=== PATIENT | male | born 1995 | race Asian ===

== ENCOUNTER 2016-11-25 06:14 | Emergency (ER) | payer BC ==
[~2016-11-25] VITALS: Ht 188 cm; Wt 65.3 kg
[2016-11-25 06:18] VITALS: Ht 188 cm; Wt 65.3 kg
[2016-11-25] MEDS ORDERED: SODIUM CHLORIDE 0.9% 1000ML 2,000 ML IV STA (06:38)
[2016-11-25] MEDS ORDERED: PROMETHAZINE HCL INJ 6.25 MG in SODIUM CHLORIDE 0.9% 50ML 50 ML IV STA (06:38)
[2016-11-25] MEDS ORDERED: ONDANSETRON INJ 2 MG/ML 2 ML VIAL IV STA (06:38)
[2016-11-25] MEDS ORDERED: KETOROLAC TROMETHAMINE 30 MG/ML VIAL IV STA (06:38)
[2016-11-25 06:42] VITALS: O2SAT 100
--- NOTE | 2016-11-25 06:47 | EMERGENCY ROOM VISIT NOTE ---
History Report prepared by Meenu: Lachelle Crystal Under the Supervision of: Dr. Louis Hernandez M.D. First contact with patient: 06:34 Chief Complaint: HYPERVENTILATION Stated Complaint: NUMBNESS IN WHOLE BODY Nursing Triage Summary: Patient presents to ED via private vehicle. Patient states, "My body feels numb. I haven't slept. I've been vomiting and feeling dizzy." Patient hyperventilating upon arrival. A/O x4. History of Present Illness The patient is a 21 year old male who presents to the Emergency Room with complaints of persistent vomiting that began 12 hours ago. The patient states that he has been vomiting persistently since yesterday, noting that he vomited seven times. He additionally notes that he had been passing gas yesterday, but denies any diarrhea. The patient states that he then began feeling dizzy due to his symptoms. He states that he started hyperventilating and then noticed whole body numbness. The patient's mother notes that she was recently ill with similar symptoms. She states that she had been vomiting three days ago, but once she started taking antibiotics she started feeling better. The patient notes that he only takes medications for his acne and denies any active medical problems. Source of History: patient, parent (mother) Onset: 12 hours ago Position: other (global) Quality: other (vomiting) Timing: other (persistent) Associated Symptoms: + numbness (whole body), No diarrhea Note: Associated Symptoms: passing gas, dizzy, hyperventilation Review of Systems See HPI for pertinent positives & negatives. A total of 10 systems reviewed and were otherwise negative. Past Medical & Surgical Medical Problems: (1) No active medical problems Family History Diabetes mellitus FH: heart disease Hypertension Social History Smoking Status: Never Smoker Smokeless Tobacco Use: No Alcohol Use: none Marital Status: single Housing Status: lives with family Occupation Status: student Current/Historical Medications Scheduled Ondasetron Odt (Zofran Odt), 4 MG SL Q6H Allergies Coded Allergies: Iodinated Contrast Media (Verified Allergy, Severe, `, 11/25/16) Iodine (Verified Allergy, Severe, 11/25/16) Physical Exam Vital Signs Date Time Temp Pulse Resp B/P Pulse Ox O2 Delivery O2 Flow Rate FiO2 11/25/16 09:45 36.9 92 16 99/40 97 11/25/16 09:22 92 11/25/16 08:14 91 20 97/40 96 Room Air 11/25/16 06:42 100 Room Air 11/25/16 06:33 121 11/25/16 06:18 36.9 134 38 129/98 98 Room Air 11/25/16 06:18 98 Room Air Physical Exam GENERAL: Patient is in no acute distress. HEENT: No acute trauma, normocephalic atraumatic, mucous membranes dry, no nasal congestion, no scleral icterus. NECK: No stridor, no adenopathy, no meningismus, trachea is midline. LUNGS: Clear to auscultation bilaterally, no wheeze, no rhonchi, breath sounds equal. HEART: Tachycardic, regular rhythm, no murmurs. ABDOMEN: Soft, nontender, bowel sounds positive, no hernias, no peritonitis. EXTREMITIES: No cyanosis or edema, full range of motion of all the joints without pain or difficulty, no signs for acute trauma. NEUROLOGIC: Oriented x 3, no acute motor or sensory deficits, no focal weakness. SKIN: No rash, no jaundice, no diaphoresis. Medical Decision & Procedures ER Provider Diagnostic Interpretation: X-ray results as stated below per interpretation by me and the radiologist: CHEST AND ABDOMEN 2 VIEWS HISTORY: Vomiting and generalized abdominal pain. COMPARISON: Abdomen and pelvis CT 09/24/2007. FINDINGS: The lungs are clear. The heart is normal in size. There is blunting the bilateral costophrenic sulci. This may represent trace pleural effusions. No pneumoperitoneum. No pneumatosis. The bowel gas pattern is unremarkable. No evidence for bowel obstruction. No renal or ureteral calculi. IMPRESSION: 1. Unremarkable bowel gas pattern. No evidence for bowel obstruction. 2. Suspect trace bilateral pleural effusions. Electronically signed by: Tomas Quesada M.D. 11/25/2016 8:10 AM Dictated Date/Time: 11/25/2016 8:07 AM Laboratory Results 11/25/16 06:52 Red Blood Count 5.56, Mean Corpuscular Volume 86.2, Mean Corpuscular Hemoglobin 31.1, Mean Corpuscular Hemoglobin Concent 36.1, Mean Platelet Volume 10.7, Neutrophils (%) (Auto) 91.0, Lymphocytes (%) (Auto) 5.0, Monocytes (%) (Auto) 3.1, Eosinophils (%) (Auto) 0.8, Basophils (%) (Auto) 0.0, Neutrophils # (Auto) 6.74, Lymphocytes # (Auto) 0.37, Monocytes # (Auto) 0.23, Eosinophils # (Auto) 0.06, Basophils # (Auto) 0.00 11/25/16 06:52 Test 11/25/16 06:52 11/25/16 08:50 White Blood Count 7.41 K/uL (4.8-10.8) Red Blood Count 5.56 M/uL (4.7-6.1) Hemoglobin 17.3 g/dL (14.0-18.0) Hematocrit 47.9 % (42-52) Mean Corpuscular Volume 86.2 fL (80-100) Mean Corpuscular Hemoglobin 31.1 pg (25-34) Mean Corpuscular Hemoglobin Concent 36.1 g/dl (32-36) Platelet Count 149 K/uL (130-400) Mean Platelet Volume 10.7 fL (7.4-10.4) Neutrophils (%) (Auto) 91.0 % Lymphocytes (%) (Auto) 5.0 % Monocytes (%) (Auto) 3.1 % Eosinophils (%) (Auto) 0.8 % Basophils (%) (Auto) 0.0 % Neutrophils # (Auto) 6.74 K/uL (1.4-6.5) Lymphocytes # (Auto) 0.37 K/uL (1.2-3.4) Monocytes # (Auto) 0.23 K/uL (0.11-0.59) Eosinophils # (Auto) 0.06 K/uL (0-0.5) Basophils # (Auto) 0.00 K/uL (0-0.2) RDW Standard Deviation 38.3 fL (36.4-46.3) RDW Coefficient of Variation 12.1 % (11.5-14.5) Immature Granulocyte % (Auto) 0.1 % Immature Granulocyte # (Auto) 0.01 K/uL (0.00-0.02) Anion Gap 9.0 mmol/L (3-11) Est Creatinine Clear Calc Drug Dose 90.7 ml/min Estimated GFR () 100.3 Estimated GFR (Non- 86.5 BUN/Creatinine Ratio 12.4 (10-20) Calcium Level 9.5 mg/dl (8.5-10.1) Magnesium Level 1.7 mg/dl (1.8-2.4) Total Bilirubin 2.2 mg/dl (0.2-1) Aspartate Amino Transf (AST/SGOT) 13 U/L (15-37) Alanine Aminotransferase (ALT/SGPT) 16 U/L (12-78) Alkaline Phosphatase 91 U/L (45-117) Total Creatine Kinase 82 U/L (39-308) Total Protein 8.2 gm/dl (6.4-8.2) Albumin 4.5 gm/dl (3.4-5.0) Globulin 3.7 gm/dl (2.5-4.0) Albumin/Globulin Ratio 1.2 (0.9-2) Thyroid Stimulating Hormone (TSH) 1.330 uIu/ml (0.300-4.500) Urine Color DK YELLOW Urine Appearance CLEAR (CLEAR) Urine pH 8.0 (4.5-7.5) Urine Specific [place] 1.024 (1.000-1.030) Urine Protein NEG (NEG) Urine Glucose (UA) NEG (NEG) Urine Ketones 2+ (NEG) Urine Occult Blood NEG (NEG) Urine Nitrite NEG (NEG) Urine Bilirubin NEG (NEG) Urine Urobilinogen NEG (NEG) Urine Leukocyte Esterase TRACE (NEG) Urine WBC (Auto) 0 /hpf (0-5) Urine RBC (Auto) 0-4 /hpf (0-4) Urine Hyaline Casts (Auto) 0 /lpf (0-5) Urine Epithelial Cells (Auto) 5-10 /lpf (0-5) Urine Bacteria (Auto) NEG (NEG) Laboratory results reviewed by me. Medications Administered Medications (Trade) Dose Ordered Sig/Ilana Route Start Time Stop Time Status Last Admin Dose Admin Sodium Chloride (Nss 1000ml) 2,000 ml @ 999 mls/hr Q2H1M STAT IV 11/25/16 06:38 11/25/16 08:38 DC 11/25/16 06:49 999 MLS/HR Ondansetron HCl 4 mg 4 mg NOW STAT IV 11/25/16 06:38 11/25/16 06:41 DC 11/25/16 06:49 4 MG Promethazine HCl/ Sodium Chloride (Phenergan Inj/ Nss 50ml) 50.25 ml @ 204 mls/hr NOW STAT IV 11/25/16 06:38 11/25/16 06:52 DC 11/25/16 07:04 204 MLS/HR Ketorolac Tromethamine (Toradol Inj) 30 mg NOW STAT IV 11/25/16 06:38 11/25/16 06:41 DC 11/25/16 06:49 30 MG Magnesium Sulfate 1 gm 1 gm NOW STAT IV 11/25/16 07:21 11/25/16 07:22 DC 11/25/16 07:36 1 GM Sodium Chloride (Nss 500ml) 500 ml @ 999 mls/hr Q31M STAT IV 11/25/16 09:07 11/25/16 09:37 DC 11/25/16 09:10 999 MLS/HR ECG Indication: vomiting, other (numbness) Rate (beats per minute): 118 Rhythm: sinus tachycardia Findings: no acute ischemic change, no ectopy ED Course 0636: The patient was evaluated in room A4B. A complete history and physical exam was performed. 0638: Ordered Toradol Inj 30 mg IV, Promethazine Hcl 6.25 mg/Sodium Chloride 50.25 ml @ 204 mls/hr IV, Zofran Inj 4 mg IV, Sodium Chloride 2000 ml @ 999 mls/ hr IV. 0721: Ordered Magnesium Sulfate 1 gm IV. 0852: I reevaluated the patient and he is doing well. I discussed the exam findings with him and I discussed the treatment plan. He verbalized complete understanding and agreement. He will be ready to go home shortly after receiving more fluids. 0907: Ordered Sodium Chloride 500 ml @ 999 mls/hr IV. 0930: I reevaluated the patient and he is ready for discharge. Medical Decision The patient is a 21 year old male who presents to the ED with complaints of vomiting. Differential diagnoses considered include dehydration, electrolyte imbalance, anemia, anxiety, hyperventilation, viral illness, food borne illness , renal failure. There is no leukocytosis or concerning anemia. Magnesium was slightly low, no kidney failure, there was no hepatitis or thyroid dysfunction. Urinalysis does not show infection. Obstruction series shows no pneumonia or bowel obstruction. On exam, the patient was not toxic, he was not febrile. The patient received 2.5 L of IV saline. He received IV Zofran, IV Phenergan and IV Toradol. Patient was given a dose of IV magnesium. The patient is feeling improved, no further vomiting while here in the emergency room. His heart rate has improved. I do suspect his illness is viral as his mother had the same thing recently. The patient will be discharged with Zofran, rest, a bland diet and he was instructed to return here if worsening. Impression Primary Impression: Vomiting Additional Impressions: Dehydration Hyperventilation Hypomagnesemia Scribe Attestation The scribe's documentation has been prepared under my direction and personally reviewed by me in its entirety. I confirm that the note above accurately reflects all work, treatment, procedures, and medical decision making performed by me. Departure Information Dispostion Home / Self-Care Prescriptions Ondasetron Odt (ZOFRAN ODT) 4 Mg Tab 4 MG SL Q6H for Nausea, #10 TAB Prov: Louis Hernandez M.D. 11/25/16 Referrals No Doctor, Assigned (PCP) Forms HOME CARE DOCUMENTATION FORM, IMPORTANT VISIT INFORMATION, WORK / SCHOOL INSTRUCTIONS Patient Instructions My [facility] Additional Instructions rest bland diet---crackers, soup, gatorade, toast zofran 1-2 tab every 6 hours for nausea tylenol for fever and aches return if worsening Problem Qualifiers
[2016-11-25 07:01] LABS: COMPLETE YES; EOS % 0.8 %; HEMATOCRIT 47.9 % (42-52); IG% 0.1 %; LYMPH ABS # 0.37 K/uL (1.2-3.4); MEAN CELL VOLUME 86.2 fL (80-100); MEAN CORPUSCULAR HEMOGLOBIN 31.1 pg (25-34); MEAN CORPUSCULAR HGB CONC 36.1 g/dl (32-36); MEAN PLATELET VOLUME 10.7 fL (7.4-10.4); MONO % 3.1 %; PLATELET COUNT 149 K/uL (130-400); RED BLOOD COUNT 5.56 M/uL (4.7-6.1); WHITE BLOOD COUNT 7.41 K/uL (4.8-10.8)
[2016-11-25 07:18] LABS: BUN/CREATININE RATIO 12.4 (10-20); CALCIUM 9.5 mg/dl (8.5-10.1); CREATININE 1.2 mg/dl (0.60-1.40); MAGNESIUM 1.7 mg/dl (1.8-2.4); POTASSIUM 3.5 mmol/L (3.5-5.1)
[2016-11-25] MEDS ORDERED: MAGNESIUM SULFATE 1GM / D5W 1 GM BAG IV STA (07:21)
[2016-11-25 07:29] LABS: ALB/GLOB RATIO 1.2 (0.9-2); THYROID STIMULATING HORMONE 1.33 uIu/ml (0.300-4.500)
--- NOTE | 2016-11-25 08:11 | DIAGNOSTIC IMAGING REPORT ---
CHEST AND ABDOMEN 2 VIEWS HISTORY: Vomiting and generalized abdominal pain. COMPARISON: Abdomen and pelvis CT 09/24/2007. FINDINGS: The lungs are clear. The heart is normal in size. There is blunting the bilateral costophrenic sulci. This may represent trace pleural effusions. No pneumoperitoneum. No pneumatosis. The bowel gas pattern is unremarkable. No evidence for bowel obstruction. No renal or ureteral calculi. IMPRESSION: 1. Unremarkable bowel gas pattern. No evidence for bowel obstruction. 2. Suspect trace bilateral pleural effusions. Electronically signed by: Tomas Quesada M.D. 11/25/2016 8:10 AM Dictated Date/Time: 11/25/2016 8:07 AM
[2016-11-25] MEDS ORDERED: SODIUM CHLORIDE 0.9% 500ML 500 ML IV STA (09:07)
[2016-11-25 09:10] LABS: URINE APPEARANCE CLEAR (CLEAR); URINE BILIRUBIN NEG (NEG); URINE COLOR DK YELLOW; URINE NITRITE NEG (NEG); URINE SPECIFIC GRAVITY 1.024 (1.000-1.030); UROBILINOGEN NEG (NEG); ZZUR CULT IF INDIC CLEAN CATCH NO
[2016-11-25] MEDS ORDERED: ONDA4TAB10 SL (09:11)
[2016-11-25 09:14] LABS: MANUAL MICROSCOPIC REQUIRED? NO; REVIEW REQ? NO
[2016-11-25 09:45] VITALS: BP 99/40; PULSE 92; TEMP 36.9; O2SAT 97
== END 2016-11-25 09:47 | disposition home or self-care (01) ==
LOC: C.EDB 06:16 → C.EDA 09:47
DX: R11.10 Vomiting, unspecified (principal); E86.0 Dehydration; R06.4 Hyperventilation; E83.42 Hypomagnesemia; Z83.3 Family history of diabetes mellitus; Z82.49 Family history of ischemic heart disease and other diseases of the circulatory system

== ENCOUNTER 2022-01-20 10:59 | Observation (INO) ==
[2022-01-20 11:56] LABS: Basophils # (auto) 0.01 K/uL (0-0.2); Basophils % (auto) 0.1 %; Eosinophils # (auto) 0.07 K/uL (0-0.5); Eosinophils % (auto) 0.8 %; Hemoglobin 15.8 g/dL (14.0-18.0); Immature Granulocytes # (auto) 0.02 K/uL (0.00-0.02); Immature Granulocytes % (auto) 0.2 %; Lymphocytes % (auto) 15.8 %; Mean Corpuscular Hemoglobin 31.3 pg (25-34); Mean Corpuscular Hgb Conc 34.3 g/dL (32-36); Mean Corpuscular Volume 91.3 fL (80-100); Mean Platelet Volume 10.8 fL (7.4-10.4); Monocytes # (auto) 0.51 K/uL (0.11-0.59); Monocytes % (auto) 6.2 %; Neutrophils # (auto) 6.34 K/uL (1.4-6.5); Neutrophils % (auto) 76.9 %; Platelet Count 202 K/uL (130-400); RDW Coefficient of Variation 12.6 % (11.5-14.5); RDW Standard Deviation 42.1 fL (36.4-46.3); Red Blood Count 5.04 M/uL (4.7-6.1); White Blood Count 8.25 K/uL (4.8-10.8)
[2022-01-20] MEDS ORDERED: methylPREDNISolone 125 MG/2 ML VIAL IV STA (12:02)
[2022-01-20] MEDS ORDERED: diphenhydrAMINE 50 MG/ML VIAL IV STA (12:02)
--- NOTE | 2022-01-20 12:33 | Emergency Department Note ---
History of Present Illness General Chief complaint: Abdominal Pain Stated complaint: ABD PAIN, DR CALLED TO COME BACK TO ER TODAY Time Seen by Provider: 01/20/22 11:15 Source: patient Mode of arrival: ambulatory Limitations: no limitations History of Present Illness Maximum Pain Intensity: 5 This patient is a 26-year-old male who presents to the emergency department accompanied by his father stating that he was called back into the ER. Patient was here overnight due to abdominal pain and vomiting. He was feeling much better early this morning and was discharged home. He states that he received a call to come back to the hospital for evaluation. He states he is feeling better at this time. He reports very minimal abdominal "discomfort" rated a 1/10. He states the pain has pretty much resolved and he is no longer vomiting. On review of records, patient's initial CT was read as negative, however over read this morning was concerning for acute appendicitis. Home Medications Medication Instructions Recorded Confirmed Type ibuprofen 200 mg tablet 400 mg PO Q6H PRN 01/19/22 01/20/22 History omeprazole 40 mg capsule,delayed 40 mg PO DAILY PRN 01/19/22 01/20/22 History release Allergies Allergy/AdvReac Type Severity Reaction Status Date / Time Iodinated Contrast Media Allergy Severe Unknown Verified 01/20/22 14:03 iodine Allergy Severe Unknown Verified 01/20/22 14:03 Past Med/Surg History Medical History Acne vulgaris Asperger's disorder Idiopathic scoliosis Poor sleep hygiene Surgical History History of esophagogastroduodenoscopy (EGD) [place] teeth removed Family History Grandfather (Paternal) Diabetes Grandmother (Maternal) Hypertension Social History Smoking Status: Never smoker Hx Alcohol Use: No Hx Substance Use: No Preferred Language: Portuguese Communication Ability: 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 Beliefs That Will Affect Care: None Current Living Situation: Family Other Information That Helps Us Care for You: No Feels Safe at Home: Yes Safety Concerns: Feels Safe At This Time Assistive Devices: None Review of Systems A total of 10 systems reviewed and were otherwise negative Physical Exam Vital Signs Vital Signs - 24 hr 01/20/22 11:05 01/20/22 12:00 01/20/22 12:50 Temperature 36.6 C Temperature Source Oral Pulse Rate 71 63 Pulse Rate [Apical] Pulse Rate [Finger] 51 L Pulse Rate from SpO2 Sensor 66 Pulse Rhythm Regular Pulse Rhythm [Apical] Pulse Strength Normal Pulse Strength [Apical] Respiratory Rate 18 17 18 Respiratory Effort / Characteristics Non-Labored Spontaneous Respiratory Depth Normal Respiratory Pattern Regular Blood Pressure 105/69 109/72 Blood Pressure [Left Arm] 114/81 Blood Pressure Mean 81 84 Blood Pressure Mean [Left Arm] 92 Blood Pressure Position Sitting Blood Pressure Position [Left Arm] Pulse Oximetry 97 100 100 Oxygen Delivery Method Room Air Room Air Room Air Sepsis Recent Fever Within 48 Hours No Sepsis New/Unexplained Change in Mental Status No Sepsis Action Taken by Nursing No Action Required 01/20/22 14:26 01/20/22 17:40 01/20/22 17:50 Temperature 36.2 C L Temperature Source Temporal Artery Scan Pulse Rate Pulse Rate [Apical] 85 69 Pulse Rate [Finger] 70 Pulse Rate from SpO2 Sensor Pulse Rhythm Pulse Rhythm [Apical] Regular Regular Pulse Strength Pulse Strength [Apical] Normal Normal Respiratory Rate 18 18 12 Respiratory Effort / Characteristics Non-Labored Spontaneous Non-Labored Spontaneous Respiratory Depth Normal Normal Respiratory Pattern Regular Regular Blood Pressure Blood Pressure [Left Arm] 104/62 101/56 L 104/57 L Blood Pressure Mean Blood Pressure Mean [Left Arm] 76 71 72 Blood Pressure Position Blood Pressure Position [Left Arm] Lying Lying Pulse Oximetry 100 100 98 Oxygen Delivery Method Room Air Room Air Room Air Sepsis Recent Fever Within 48 Hours Sepsis New/Unexplained Change in Mental Status Sepsis Action Taken by Nursing VITALS: Vitals are noted on the nurse's note and reviewed by myself. GENERAL: This is a 26-year-old male, in no acute distress, well-developed well- nourished. SKIN: The skin was without rashes. EARS: External auditory canals clear, tympanic membranes pearly lopez without erythema or effusion bilaterally. EYES: Pupils equal round and reactive to light and accommodation. MOUTH: Mucous membranes moist. Tonsils are not enlarged. Pharynx without erythema or exudate. NECK: Supple without nuchal rigidity. No lymphadenopathy. HEART: Regular rate and rhythm without murmurs gallops or rubs. LUNGS: Clear to auscultation bilaterally without wheezes, rales or rhonchi. ABDOMEN: Positive bowel sounds x 4. Soft, no significant tenderness to palpation. No guarding or rebound tenderness. Specifically, no tenderness in the right lower quadrant. Negative Rovsing sign. NEURO: Patient was alert and oriented to person place and time. Course Consultations Consultation #1: Dr. Franco - general surgery Administered Medications Lactated Ringer's (Lr) 1,000 mls @ 50 mls/hr IV .Q20H AIDEN Stop: 02/19/22 19:05 Last Admin: 01/20/22 19:20 Dose: 50 mls/hr Documented by: [id number] Discontinued Medications Bupivacaine HCl (Bupivacaine 0.5 % 5 Mg/1 Ml Mpf 30ml Vial) Confirm Administered Dose 30 ml .ROUTE .STK-MED ONE Stop: 01/20/22 16:44 Last Admin: 01/20/22 17:25 Dose: 30 ml Documented by: [id number] Diphenhydramine HCl (Diphenhydramine 50 Mg/Ml Vial) 50 mg IV NOW STA Stop: 01/20/22 12:03 Last Admin: 01/20/22 12:09 Dose: 50 mg Documented by: [id number] Epinephrine HCl (Epinephrine Inj 1 Mg/Ml Amp) Confirm Administered Dose 1 mg .ROUTE .STK-MED ONE Stop: 01/20/22 16:43 Last Admin: 01/20/22 17:23 Dose: 0.15 mg Documented by: [id number] Cefoxitin Sodium 2,000 mg/ (Dextrose) 60 mls @ 100 mls/hr IV ONCE ONE Stop: 01/20/22 17:44 Last Admin: 01/20/22 16:50 Dose: 100 mls/hr Documented by: [id number] Ioversol (Optiray 320 100ml) 94 ml IV ONCE ONE Stop: 01/20/22 14:22 Last Admin: 01/20/22 14:22 Dose: 94 ml Documented by: [id number] Methylprednisolone (Methylprednisolone 125 Mg/2 Ml Vial) 125 mg IV NOW STA Stop: 01/20/22 12:03 Last Admin: 01/20/22 12:09 Dose: 125 mg Documented by: [id number] Medical Decision Making Differential Diagnosis Appendicitis, testicular torsion, infections, diverticulitis, UTI, obstruction, mesenteric ischemia, aortic pathology, inflammatory bowel disease, renal colic, PUD, pancreatitis, biliary pathology, hernia, volvulus, constipation, as well as other pathologies. Home Medications Current Medication List: was personally reviewed by me Laboratory Data Attestation: I reviewed the patient's lab results. Result diagrams: 01/20/22 11:20 01/20/22 11:20 Lab Results 01/20/22 01/20/22 01/20/22 Range/Units 11:20 11:20 11:20 WBC 8.25 (4.8-10.8) K/uL RBC 5.04 (4.7-6.1) M/uL Hgb 15.8 (14.0-18.0) g/dL Hct 46.0 (42-52) % MCV 91.3 (80-100) fL MCH 31.3 (25-34) pg MCHC 34.3 (32-36) g/dL RDW Std Deviation 42.1 (36.4-46.3) fL RDW Coeff of Dmitry 12.6 (11.5-14.5) % Plt Count 202 (130-400) K/uL MPV 10.8 H (7.4-10.4) fL Immature Gran % (Auto) 0.2 % Neut % (Auto) 76.9 % Lymph % (Auto) 15.8 % [place] % (Auto) 6.2 % Eos % (Auto) 0.8 % Baso % (Auto) 0.1 % Neut # (Auto) 6.34 (1.4-6.5) K/uL Lymph # (Auto) 1.30 (1.2-3.4) K/uL [place] # (Auto) 0.51 (0.11-0.59) K/uL Eos # (Auto) 0.07 (0-0.5) K/uL Baso # (Auto) 0.01 (0-0.2) K/uL Immature Gran # (Auto) 0.02 (0.00-0.02) K/uL Sodium 140 (136-145) mmol/L Potassium 3.9 (3.5-5.1) mmol/L Chloride 107 (98-107) mmol/L Carbon Dioxide 27 (21-32) mmol/L Anion Gap 6 (3-11) BUN 9 (6-23) mg/dl Creatinine 0.84 (0.6-1.4) mg/dl Est Cr Clr Drug Dosing 121.3 ml/min Est GFR ( Amer) 141.0 ml/min Est GFR (Non-Af Amer) 121.7 ml/min BUN/Creatinine Ratio 10.7 (10-20) Glucose 89 (70-99(Fasting)) mg/dl Calcium 9.6 (8.5-10.1) mg/dl C-Reactive Protein < 0.50 (0-0.5) mg/dl Urine Color Urine Appearance (Clear) Urine pH (4.5-7.5) Ur Specific [place] (1.000-1.030) Urine Protein (Negative) Urine Glucose (UA) (Negative) Urine Ketones (Negative) Urine Blood (Negative) Urine Nitrite (Negative) Urine Bilirubin (Negative) Urine Urobilinogen (Negative) Ur Leukocyte Esterase (Negative) SARS-CoV-2, RNA, NAAT (NEGATIVE) 01/20/22 01/20/22 Range/Units 11:30 12:45 WBC (4.8-10.8) K/uL RBC (4.7-6.1) M/uL Hgb (14.0-18.0) g/dL Hct (42-52) % MCV (80-100) fL MCH (25-34) pg MCHC (32-36) g/dL RDW Std Deviation (36.4-46.3) fL RDW Coeff of Dmitry (11.5-14.5) % Plt Count (130-400) K/uL MPV (7.4-10.4) fL Immature Gran % (Auto) % Neut % (Auto) % Lymph % (Auto) % [place] % (Auto) % Eos % (Auto) % Baso % (Auto) % Neut # (Auto) (1.4-6.5) K/uL Lymph # (Auto) (1.2-3.4) K/uL [place] # (Auto) (0.11-0.59) K/uL Eos # (Auto) (0-0.5) K/uL Baso # (Auto) (0-0.2) K/uL Immature Gran # (Auto) (0.00-0.02) K/uL Sodium (136-145) mmol/L Potassium (3.5-5.1) mmol/L Chloride (98-107) mmol/L Carbon Dioxide (21-32) mmol/L Anion Gap (3-11) BUN (6-23) mg/dl Creatinine (0.6-1.4) mg/dl Est Cr Clr Drug Dosing ml/min Est GFR ( Amer) ml/min Est GFR (Non-Af Amer) ml/min BUN/Creatinine Ratio (10-20) Glucose (70-99(Fasting)) mg/dl Calcium (8.5-10.1) mg/dl C-Reactive Protein (0-0.5) mg/dl Urine Color Yellow Urine Appearance Clear (Clear) Urine pH 7.0 (4.5-7.5) Ur Specific [place] 1.006 (1.000-1.030) Urine Protein Negative (Negative) Urine Glucose (UA) Negative (Negative) Urine Ketones Negative (Negative) Urine Blood Negative (Negative) Urine Nitrite Negative (Negative) Urine Bilirubin Negative (Negative) Urine Urobilinogen Negative (Negative) Ur Leukocyte Esterase Negative (Negative) SARS-CoV-2, RNA, NAAT NEGATIVE (NEGATIVE) Imaging Data Attestation: I personally reviewed and interpreted this imaging study as follows: Radiologist's Impression: Abdomen/Pelvis CT 01/20/22 11:[address] WITH IV AND ORAL CONTRAST CT DOSE: 310.38 mGy.cm HISTORY: Generalized abdominal pain. Nausea. Vomiting. Abnormal CT. Follow-up. TECHNIQUE: Multiaxial CT images of the abdomen and pelvis were performed following the use of intravenous and oral contrast. A dose lowering technique was utilized adhering to the principles of ALARA. COMPARISON STUDY: Abdomen and pelvis CT 01/20/2022. FINDINGS: Trace bilateral pleural effusions are noted. No pneumoperitoneum. No pneumatosis. No fractures within the visualized osseous structures. The liver, spleen, adrenal glands, pancreas, kidneys, and gallbladder are unremarkable. No retroperitoneal lymphadenopathy. Normal caliber abdominal aorta. Trace pelvic free fluid. The bladder is unremarkable. No evidence for bowel obstruction. The appendix is again identified within the right lower quadrant. The proximal appendix is normal in caliber and fills with contrast. The distal appendix is thickened measuring up to 8 mm and filled with fluid. This does not fill with co ntrast. Therefore, this is consistent with acute appendicitis. The distal appendix is best seen on images 299 through 315. IMPRESSION: Abnormal appearance to the distal appendix as described above consistent with acute appendicitis. No perforation or abscess identified. Surgical consultation recommended. ACT 112: Negative or not required by law. Electronically signed by: Tomas Quesada M.D. 01/20/2022 2:32 PM MDM Narrative The patient is a 26-year-old male who presents today for evaluation of an abnormal CT scan. Patient was seen here overnight due to vomiting and abdominal pain. He had a noncontrast CT scan which was initially read overnight as negative, however over read this morning was concerning for appendicitis. Interestingly, on arrival here the patient is not complaining of any further pain or vomiting. However given these findings I did speak with the general surgeon on-call, Dr. Franco. We discussed plan of care and elected to repeat labs and a CT with IV and oral contrast. This was performed and again was concerning for appendicitis. Dr. Franco evaluated the patient and elected to take him to the OR for operative management. Impression & Plan Appendicitis Discharge Plan Visit Data Chief Complaint: Abdominal Pain Stated Complaint: ABD PAIN, CALLED TO COME BACK TO ER TODAY ED Provider: Pal Fleming ED Midlevel Provider: Olimpia Lizama Discharge Problem: Appendicitis Patient Disposition: Admitted As Inpatient Discharge Instructions Interventions: ED Discharge Assessment Last Done: 01/20/22 16:26 Discharge Problem: Appendicitis Qualifiers: Appendicitis type: acute appendicitis Acute appendicitis type: unspecified acute appendicitis type Qualified Code(s): K35.80 - Unspecified acute appendicitis
[2022-01-20 12:40] LABS: BUN Creatinine Ratio 10.7 (10-20); Calcium 9.6 mg/dl (8.5-10.1); Creatinine Clr Calc Pharmacy 121.3 ml/min; Est GFR (Non-African American) 121.7 ml/min; Potassium 3.9 mmol/L (3.5-5.1)
[2022-01-20] MEDS ORDERED: OPTIRAY 320 100ml IV ONE (14:21)
--- NOTE | 2022-01-20 14:34 | CT Scan Report ---
ABDOMEN AND PELVIS CT WITH IV AND ORAL CONTRAST CT DOSE: 310.38 mGy.cm HISTORY: Generalized abdominal pain. Nausea. Vomiting. Abnormal CT. Follow-up. TECHNIQUE: Multiaxial CT images of the abdomen and pelvis were performed following the use of intrave nous and oral contrast. A dose lowering technique was utilized adhering to the principles of ALARA. COMPARISON STUDY: Abdomen and pelvis CT 01/20/2022. FINDINGS: Trace bilateral pleural effusions are noted. No pneumoperitoneum. No pneumatosis. No fractu res within the visualized osseous structures. The liver, spleen, adrenal glands, pancreas, kidneys, a nd gallbladder are unremarkable. No retroperitoneal lymphadenopathy. Normal caliber abdominal aorta. Trace pelvic free fluid. The bladder is unremarkable. No evidence for bowel obstruction. The appendix is again identified within the right lower quadrant. The proximal appendix is normal in caliber and fills with contrast. The distal appendix is thickened measuring up to 8 mm and filled with fluid. Thi s does not fill with contrast. Therefore, this is consistent with acute appendicitis. The distal appe ndix is best seen on images 299 through 315. IMPRESSION: Abnormal appearance to the distal appendix as described above consistent with acute appendicitis. No perforation or abscess identified. Surgical consultation recommended. ACT 112: Negative or not required by law. Electronically signed by: Tomas Quesada M.D. 01/20/2022 2:32 PM
[2022-01-20 14:50] LABS: Appearance Urine Clear (Clear); Bilirubin Urine Negative (Negative); Blood Urine Negative (Negative); Color Urine Yellow; Glucose Urine UA Negative (Negative); Ketones Urine Negative (Negative); Leukocyte Esterase Urine Negative (Negative); Nitrite Urine Negative (Negative); Protein Urine Negative (Negative); Specific Gravity Urine 1.006 (1.000-1.030); Urobilinogen Urine Negative (Negative)
--- NOTE | 2022-01-20 15:53 | History & Physical Report ---
Date of Service January 20, 2022 Assessment & Plan (1) Appendicitis: Plan: 26 y/o with acute appendicitis. discussed risks/benefits of lap appendectomy. all questions answered, agreeable to proceed. will take to the OR at the earliest convenience. History of Present Illness Primary Care Provider: Melinda Robles, DO 26 y/o gentleman with right sided and epigastric abdominal pain associated with nausea and vomiting. last ate yesterday, vomited afterwards. denies fevers/chills. has a history of epigastric pain dating back to a year ago. worst pain yesterday. CT scan with abnormal appendix, concern for acute appendicitis, WBC 12 yesterday. Allergies Allergy/AdvReac Type Severity Reaction Status Date / Time Iodinated Contrast Media Allergy Severe Unknown Verified 01/20/22 14:03 iodine Allergy Severe Unknown Verified 01/20/22 14:03 Home Medications Medication Instructions Recorded Confirmed Type ibuprofen 200 mg tablet 400 mg PO Q6H PRN 01/19/22 01/20/22 History omeprazole 40 mg capsule,delayed 40 mg PO DAILY PRN 01/19/22 01/20/22 History release Past Med/Surg History Medical History Acne vulgaris Asperger's disorder Idiopathic scoliosis Poor sleep hygiene Surgical History History of esophagogastroduodenoscopy (EGD) [place] teeth removed Family History Grandfather (Paternal) Diabetes Grandmother (Maternal) Hypertension Social History Smoking Status: Never smoker Hx Alcohol Use: No Hx Substance Use: No Preferred Language: Sinhala Feels Safe at Home: Yes Review of Systems Review of Systems: All systems reviewed & are unremarkable except as noted in HPI & below Physical Exam Constitutional: WD/WN, vitals as above Neck: trachea midline, no thyromegaly Respiratory: normal respiratory effort; no respiratory distress and no labored breathing Cardiovascular: Rate/Rhythm: regular rate and regular rhythm Gastrointestinal (Abdomen): Inspection/Auscultation: abdomen normal to inspection; abdomen not distended Percussion/Palpation: abdomen soft; abdomen nontender, no guarding and abdomen not rigid Musculoskeletal: Extremities: no cyanosis and no clubbing Skin: no rashes, warm and dry Psychiatric: A+Ox3, euthymic affect Results & Data Results & Data ([facility]) Vital Signs (Past 12 Hours) Vital Signs Temp Pulse Pulse Resp BP BP Pulse Ox 01/20/22 14:26 70 18 104/62 100 01/20/22 12:50 51 L 18 114/81 100 01/20/22 12:00 63 17 109/72 100 01/20/22 11:05 36.6 C 71 18 105/69 97 Laboratory Results 01/20/22 01/20/22 01/20/22 Range/Units 12:45 11:30 11:20 WBC (4.8-10.8) K/uL RBC (4.7-6.1) M/uL Hgb (14.0-18.0) g/dL Hct (42-52) % MCV (80-100) fL MCH (25-34) pg MCHC (32-36) g/dL RDW Std Deviation (36.4-46.3) fL RDW Coeff of Dmitry (11.5-14.5) % Plt Count (130-400) K/uL MPV (7.4-10.4) fL Immature Gran % (Auto) % Neut % (Auto) % Lymph % (Auto) % [place] % (Auto) % Eos % (Auto) % Baso % (Auto) % Neut # (Auto) (1.4-6.5) K/uL Lymph # (Auto) (1.2-3.4) K/uL [place] # (Auto) (0.11-0.59) K/uL Eos # (Auto) (0-0.5) K/uL Baso # (Auto) (0-0.2) K/uL Immature Gran # (Auto) (0.00-0.02) K/uL Sodium (136-145) mmol/L Potassium (3.5-5.1) mmol/L Chloride (98-107) mmol/L Carbon Dioxide (21-32) mmol/L Anion Gap (3-11) BUN (6-23) mg/dl Creatinine (0.6-1.4) mg/dl Est Cr Clr Drug Dosing ml/min Est GFR ( Amer) ml/min Est GFR (Non-Af Amer) ml/min BUN/Creatinine Ratio (10-20) Glucose (70-99(Fasting)) mg/dl Calcium (8.5-10.1) mg/dl C-Reactive Protein < 0.50 (0-0.5) mg/dl Urine Color Yellow Urine Appearance Clear (Clear) Urine pH 7.0 (4.5-7.5) Ur Specific [place] 1.006 (1.000-1.030) Urine Protein Negative (Negative) Urine Glucose (UA) Negative (Negative) Urine Ketones Negative (Negative) Urine Blood Negative (Negative) Urine Nitrite Negative (Negative) Urine Bilirubin Negative (Negative) Urine Urobilinogen Negative (Negative) Ur Leukocyte Esterase Negative (Negative) SARS-CoV-2, RNA, NAAT NEGATIVE (NEGATIVE) 01/20/22 01/20/22 Range/Units 11:20 11:20 WBC 8.25 (4.8-10.8) K/uL RBC 5.04 (4.7-6.1) M/uL Hgb 15.8 (14.0-18.0) g/dL Hct 46.0 (42-52) % MCV 91.3 (80-100) fL MCH 31.3 (25-34) pg MCHC 34.3 (32-36) g/dL RDW Std Deviation 42.1 (36.4-46.3) fL RDW Coeff of Dmitry 12.6 (11.5-14.5) % Plt Count 202 (130-400) K/uL MPV 10.8 H (7.4-10.4) fL Immature Gran % (Auto) 0.2 % Neut % (Auto) 76.9 % Lymph % (Auto) 15.8 % [place] % (Auto) 6.2 % Eos % (Auto) 0.8 % Baso % (Auto) 0.1 % Neut # (Auto) 6.34 (1.4-6.5) K/uL Lymph # (Auto) 1.30 (1.2-3.4) K/uL [place] # (Auto) 0.51 (0.11-0.59) K/uL Eos # (Auto) 0.07 (0-0.5) K/uL Baso # (Auto) 0.01 (0-0.2) K/uL Immature Gran # (Auto) 0.02 (0.00-0.02) K/uL Sodium 140 (136-145) mmol/L Potassium 3.9 (3.5-5.1) mmol/L Chloride 107 (98-107) mmol/L Carbon Dioxide 27 (21-32) mmol/L Anion Gap 6 (3-11) BUN 9 (6-23) mg/dl Creatinine 0.84 (0.6-1.4) mg/dl Est Cr Clr Drug Dosing 121.3 ml/min Est GFR ( Amer) 141.0 ml/min Est GFR (Non-Af Amer) 121.7 ml/min BUN/Creatinine Ratio 10.7 (10-20) Glucose 89 (70-99(Fasting)) mg/dl Calcium 9.6 (8.5-10.1) mg/dl C-Reactive Protein (0-0.5) mg/dl Urine Color Urine Appearance (Clear) Urine pH (4.5-7.5) Ur Specific [place] (1.000-1.030) Urine Protein (Negative) Urine Glucose (UA) (Negative) Urine Ketones (Negative) Urine Blood (Negative) Urine Nitrite (Negative) Urine Bilirubin (Negative) Urine Urobilinogen (Negative) Ur Leukocyte Esterase (Negative) SARS-CoV-2, RNA, NAAT (NEGATIVE) Diagnostic Findings ABDOMEN AND PELVIS CT WITH IV AND ORAL CONTRAST CT DOSE: 310.38 mGy.cm HISTORY: Generalized abdominal pain. Nausea. Vomiting. Abnormal CT. Follow-up. TECHNIQUE: Multiaxial CT images of the abdomen and pelvis were performed following the use of intravenous and oral contrast. A dose lowering technique was utilized adhering to the principles of ALARA. COMPARISON STUDY: Abdomen and pelvis CT 01/20/2022. FINDINGS: Trace bilateral pleural effusions are noted. No pneumoperitoneum. No pneumatosis. No fractures within the visualized osseous structures. The liver, spleen, adrenal glands, pancreas, kidneys, and gallbladder are unremarkable. No retroperitoneal lymphadenopathy. Normal caliber abdominal aorta. Trace pelvic free fluid. The bladder is unremarkable. No evidence for bowel obstruction. The appendix is again identified within the right lower quadrant. The proximal appendix is normal in caliber and fills with contrast. The distal appendix is thickened measuring up to 8 mm and filled with fluid. This does not fill with contrast. Therefore, this is consistent with acute appendicitis. The distal appendix is best seen on images 299 through 315. IMPRESSION: Abnormal appearance to the distal appendix as described above consistent with acute appendicitis. No perforation or abscess identified. Surgical consultation recommended.
[2022-01-20] MEDS ORDERED: fentaNYL citrate 100 MCG/2 ML VIAL ONE ×2 (16:12→17:08)
[2022-01-20] MEDS ORDERED: MIDAZOLAM HCL 1 MG/ML 2ML VIAL ONE (16:12)
[2022-01-20] MEDS ORDERED: PROPOFOL IV EMULSION 10 MG/ML 20 ML VIAL IV ONE (16:12)
[2022-01-20] MEDS ORDERED: ROCURONIUM BROMIDE 10 MG/ML 5 ML VIAL IV ONE (16:12)
[2022-01-20] MEDS ORDERED: ePHEDrine sulfate 50 MG/ML AMP IV PRN (16:36)
[2022-01-20] MEDS ORDERED: HYDROmorphone INJ 2 MG/ML SYR/VIAL IV PRN (16:36)
[2022-01-20] MEDS ORDERED: ATROPINE SULFATE 0.1 MG/ML 10ML SYR IV PRN (16:36)
[2022-01-20] MEDS ORDERED: fentaNYL citrate 100 MCG/2 ML VIAL IV PRN (16:36)
[2022-01-20] MEDS ORDERED: ONDANSETRON INJ 2 MG/ML 2 ML VIAL IV PRN ×2 (16:36→19:06)
--- NOTE | 2022-01-20 16:38 | Anesthesiology Consultation ---
Date of Service January 20, 2022 Assessment & Plan ASA [id number] Proposed Anesthesia Anesthesia Type: General Risk / Benefits Reviewed With: PT / POA / Parent / Guardian, Accepts Plan and Informed Consent Obtained History Surgery Operation Date: 01/20/22 15:00 Proposed Procedures p Laparoscopic Appendectomy - Pérez Franco MD Height/Weight Height: 5 ft 6 in Weight: 74.8 kg Allergies Allergy/AdvReac Type Severity Reaction Status Date / Time Iodinated Contrast Media Allergy Severe Unknown Verified 01/20/22 14:03 iodine Allergy Severe Unknown Verified 01/20/22 14:03 Medications Home Medications Medication Instructions Recorded Confirmed Last Taken ibuprofen 200 mg tablet 400 mg PO Q6H PRN 01/19/22 01/20/22 01/19/22 21:00 200 mg omeprazole 40 mg capsule,delayed 40 mg PO DAILY PRN 01/19/22 01/20/22 01/19/22 21:00 release 40 mg Past Medical History Medical History Acne vulgaris Asperger's disorder Idiopathic scoliosis Poor sleep hygiene Exercise / Class Metabolic Activity II 4-5 Yardwork/Stairs/Walk up hill Past Family History Family History Grandfather (Paternal) Diabetes Grandmother (Maternal) Hypertension Past Surgical History Surgical History History of esophagogastroduodenoscopy (EGD) [place] teeth removed Past Anesthesia History No Hx of Anesthesia Complications and No Family Hx of Anesthesia Complications History of PONV No Hx of PONV and No Hx of Motion Sickness Social History Smoking Status: Never smoker Hx Alcohol Use: No Hx Substance Use: No Review of Systems denies fever/cough/ colds/ chest pain/ SOB/ SIERRA denies SIERRA Physical Exam Vital Signs Last Vital Signs Temp 36.6 C 01/20/22 11:05 Pulse 70 01/20/22 14:26 Resp 18 01/20/22 14:26 BP 104/62 01/20/22 14:26 Pulse Ox 100 01/20/22 14:26 ENMT Mouth: no TMJ abnormality and no dentition abnormality Thyromental Distance: > or= 3.5 Finger Breadths Mallampati Class: II Neck neck extension not limited Respiratory normal respiratory effort; no respiratory distress Auscultation: lungs clear to auscultation bilaterally Cardiovascular Rate/Rhythm: regular rate and regular rhythm Neurologic moves all extremities Psychiatric Orientation: alert and oriented x 3 Testing Laboratory Results 01/20/22 11:20 01/20/22 11:20 Urine Color Yellow 01/20/22 12:45 Urine Appearance Clear (Clear) 01/20/22 12:45 Urine pH 7.0 (4.5-7.5) 01/20/22 12:45 Ur Specific [place] 1.006 (1.000-1.030) 01/20/22 12:45 Urine Protein Negative (Negative) 01/20/22 12:45 Urine Glucose (UA) Negative (Negative) 01/20/22 12:45 Urine Ketones Negative (Negative) 01/20/22 12:45 Urine Nitrite Negative (Negative) 01/20/22 12:45 Ur Leukocyte Esterase Negative (Negative) 01/20/22 12:45
[2022-01-20] MEDS ORDERED: EPINEPHrine INJ 1 MG/ML AMP ONE (16:42)
[2022-01-20] MEDS ORDERED: BUPIVACAINE 0.5 % 5 MG/1 ML MPF 30ML VIAL ONE (16:43)
[2022-01-20] MEDS ORDERED: ONDANSETRON INJ 2 MG/ML 2 ML VIAL ONE (17:08)
[2022-01-20] MEDS ORDERED: GLYCOPYRROLATE 0.2 MG/ML VIAL ONE (17:08)
[2022-01-20] MEDS ORDERED: DEXAMETHASONE SOD INJ 4 MG/ML VIAL ONE (17:08)
[2022-01-20] MEDS ORDERED: NEOSTIGMINE METHYLSULFATE 1 MG/ML 10ML VIAL ONE (17:08)
[2022-01-20] MEDS ORDERED: cefOXitin 2,000 MG in DEXTROSE 5% 50 ML IV ONE (17:09)
[2022-01-20] MEDS ORDERED: KETOROLAC 30 MG/ML VIAL ONE (17:09)
--- NOTE | 2022-01-20 17:29 | Post Operative Brief Note ---
Immediate Post Op Note v1 Date of Surgery January 20, 2022 Pre & Post Diagnosis Operation Date: 01/20/22 15:00 Pre-Op Diagnosis: Acute appendicitis Post-Op Diagnosis: Acute appendicitis I identified the patient and participated in the time-out.: Yes Procedure Operation Date: 01/20/22 15:00 Actual Procedures p Laparoscopic Appendectomy(Not Applicable) - Pérez Franco MD Surgeon Pérez Franco MD Diesel Truck Mechanic none Estimated Blood Loss 5 Findings Consistent with Post-Op Diagnosis
--- NOTE | 2022-01-20 18:00 | Operative Report ---
Post Operative Report Pre & Post Diagnosis Operation Date: 01/20/22 15:00 Pre-Op Diagnosis: Acute appendicitis Post-Op Diagnosis: Acute appendicitis I identified the patient and participated in the time-out.: Yes Procedure Operation Date: 01/20/22 15:00 Actual Procedures p Laparoscopic Appendectomy(Not Applicable) - Pérez Franco MD Surgeon Pérez Franco MD Babysitter none Estimated Blood Loss 5 Findings Consistent with Post-Op Diagnosis Acute inflammation of the tip of the appendix Specimens Appendix Anesthesia Type General Complications No immediate complications Description of Procedure The patient was taken to the operating room, and placed supine on the operating table. A timeout was performed, perioperative antibiotics were administered, SCD boots were placed. After adequate anesthesia and analgesia was obtained, the abdomen was prepped and draped in the normal sterile fashion. A 1 cm incision was made in the supraumbilical region and carried down to the level of the fascia. A trach hook was used to grasp the fascia and elevated and a varies needle was used to enter the abdominal cavity. The abdomen was insufflated to a pressure of 15 mmHg, and a 5 mm trocar was placed in this location. A 5 mm 30 degree laparoscope was placed into the abdominal cavity, and the abdomen was surveyed. The patient was placed in Trendelenburg and slightly to the left. One 5 mm trocar was placed in the right upper quadrant, and one 12 mm trocar was placed in the left lower quadrant under direct visualization. The right colon was identified and traced down to the cecum. The appendix was identified and elevated anteriorly and medially. A window was created at the base of the appendix with a [place] dissector. The Endo TERESA stapler was used to transect the appendix at its base through noninflamed tissue, and subsequently the mesoappendix. The appendix was placed in an Endo Catch bag, and removed via the left lower quadrant port site. Attention was turned to hemostasis, which was excellent. The abdomen was copiously irrigated and suctioned free, and again hemostasis was found to be excellent. All trochars removed under direct visualization. The abdomen was desufflated. The fascia in the 12 mm port site was closed with a 0 Vicryl suture. The skin was closed with a running 4-0 Monocryl subcuticular stitch. Dermabond was applied. The patient tolerated the procedure without complication, and was transferred in stable condition to the PACU. All instrument, needle, and sponge counts were correct at the end of the case. I attest to the content of the Intraoperative Record and any orders documented therein. Any exceptions are noted below.
--- NOTE | 2022-01-20 18:13 | Anesthesiology Progress Note ---
Date of Service January 20, 2022 Anesthesia Post Procedure Vital Signs Vital Signs: Temp Pulse Pulse Pulse Resp BP BP 01/20/22 18:00 80 19 102/59 L 01/20/22 17:50 69 12 104/57 L 01/20/22 17:40 36.2 C L 85 18 101/56 L 01/20/22 14:26 70 18 104/62 01/20/22 12:50 51 L 18 114/81 01/20/22 12:00 63 17 109/72 01/20/22 11:05 36.6 C 71 18 105/69 Pulse Ox 01/20/22 18:00 98 01/20/22 17:50 98 01/20/22 17:40 100 01/20/22 14:26 100 01/20/22 12:50 100 01/20/22 12:00 100 01/20/22 11:05 97 Pain Intensity Abdomen: Pain Intensity: 5 Transfer of Care Handoff Completed per policy Notes Mental Status: alert / awake / arousable and participated in evaluation Patient Amnestic to Procedure: Yes Nausea / Vomiting: adequately controlled Pain: adequately controlled Airway Patency, RR, SpO2: stable & adequate BP & HR: stable & adequate Hydration State: stable & adequate Anesthetic Complications: no major complications apparent and Pt Satisfied with anesthetic care
[2022-01-20] MEDS ORDERED: PROMETHAZINE HCL 12.5 MG in SODIUM CHLORIDE 0.9% 50 ML IV PRN (19:06)
[2022-01-20] MEDS ORDERED: KETOROLAC 30 MG/ML VIAL IV PRN (19:06)
[2022-01-20] MEDS ORDERED: LACTATED RINGER'S 1,000 ML IV SCH (19:06)
[2022-01-20] MEDS ORDERED: diphenhydrAMINE Capsule 25 MG CAP PO PRN (19:06)
[2022-01-20] MEDS ORDERED: MoRPHine SULFATE 2 MG/ML CARP IV PRN (19:06)
[2022-01-20] MEDS ORDERED: ENOXAPARIN INJ 40 MG/0.4 ML SYR SQ SCH (20:00)
[2022-01-20] MEDS: oxyCODONE/ACETAMINOPHEN 5mg/325mg TAB PO PRN (21:10)
[2022-01-20] MEDS ORDERED: COUGH DROP (SUGAR FREE) LOZ 24 LOZ/1 BOX BUCCAL ONE (22:05)
[2022-01-21] MEDS: oxyCODONE/ACETAMINOPHEN 5mg/325mg TAB PO PRN ×2 (05:35→11:33)
--- NOTE | 2022-01-21 12:08 | Discharge Summary ---
Date of Service January 21, 2022 Admission HPI Per Admitting Provider 26 y/o gentleman with right sided and epigastric abdominal pain associated with nausea and vomiting. last ate yesterday, vomited afterwards. denies fevers/chills. has a history of epigastric pain dating back to a year ago. worst pain yesterday. CT scan with abnormal appendix, concern for acute appendicitis, WBC 12 yesterday. Principal Diagnosis Acute appendicitis Discharge Exam Constitutional WD/WN, vitals as above Neck trachea midline, no thyromegaly Respiratory normal respiratory effort; no respiratory distress and no labored breathing Cardiovascular Rate/Rhythm: regular rate and regular rhythm Gastrointestinal (Abdomen) Inspection/Auscultation: abdomen normal to inspection; abdomen not distended Percussion/Palpation: abdomen soft; abdomen nontender, no guarding and abdomen not rigid Musculoskeletal Extremities: no cyanosis and no clubbing Skin no rashes, warm and dry Psychiatric A+Ox3, euthymic affect Discharge Data Allergies Allergy/AdvReac Type Severity Reaction Status Date / Time Iodinated Contrast Media Allergy Severe Unknown Verified 01/20/22 14:03 iodine Allergy Severe Unknown Verified 01/20/22 14:03 Procedures Performed Operation Date: 01/20/22 15:00 Actual Procedures p Laparoscopic Appendectomy(Not Applicable) - Pérez Franco MD Ordered Studies 01/20/22 11:49 CT abd pelvis oral and IV con Stat Hospital Course (1) Appendicitis: He was admitted through the emergency department and was taken to the operating room for laparoscopic appendectomy, which was dictated in a separate operative note. Postoperatively he did well and was transferred in stable condition to the PACU and subsequently to the floor. His diet was advanced as tolerated. DVT prophylaxis with SCD boots and enoxaparin. Incentive spirometry and pulmonary toilet was aggressively encouraged. He was up and ambulating. By the date of discharge, he was tolerating a diet, and was not requiring any pain medications, and he was discharged home in stable condition. He will follow-up with us in 2 weeks. Total Time Total Time Spent Total Time Spent (In Minutes): 30 minutes Discharge Plan Discharge Items Patient Disposition: Home - Self-Care Reason For Visit: ABD DR AUREA CALLED TO COME BACK TO ER TODAY Discharge Diagnosis: Acute appendicitis Activity: Per Instructions section Lifting: No more than 10 pounds Driving/Machine Use: Resume 3 days after discharge Non-emergency contact: Surgeon Call non-emergency contact if: you have any medication questions, your symptoms worsen, your pain is not controlled, your pain is unusual for you, your pain is concerning for you, your temperature is above 101.5, your wound has increased redness, your wound has increased drainage and your wound pain has increased Follow-up/Referrals: Melinda Robles, [Primary Care Provider] - Diet: Regular Addtl Attending Provider Instructions: Post-Surgical ~Discharge Instructions Activity Recommendations: - lifting limitation: (10 pounds for 2 weeks), - exercise/sex/sports limit: (nonstrenuous for 2 weeks), - driving or machine use limit: (none for 1 week), - Shower/bathe limit: (may shower beginning tomorrow) Diet: - Resume previous diet SPECIAL CARE INSTRUCTIONS: - May shower in 24 hours. Let water run over area and pat dry. - Leave Dermabond in place. - Call the surgeon's office with any questions or concerns - - (ex. temperature higher than 101 degrees F, excessive bleeding or pain). MEDICATIONS: - Resume previous medications unless instructed otherwise by your surgeon. - Ibuprofen 600 mg every 6 hours with food - Percocet 1 every 4 hours, as needed for pain FOLLOW UP VISIT: - If not already scheduled, please call the office to schedule a two week follow-up appointment. Office number Pending Studies at Discharge: No Stand-Alone Forms: [facility] [employer], Smoking Cessation Medications and DC Order Prescriptions: New oxycodone-acetaminophen [Percocet] 5-325 mg tablet 1 tab PO Q6H PRN (Reason: pain) Qty: 10 RF: 0 Continued omeprazole 40 mg capsule,delayed release(DR/EC) 40 mg PO DAILY PRN (Reason: gastric upset) RF: 0 ibuprofen 200 mg Tablet 400 mg PO Q6H PRN (Reason: Pain) RF: 0 Discharge Orders: Discharge Order (Routine); Ordered 01/21/22 Ordered By: Pérez Franco Admission Data Admit Date/Time: 01/20/22 17:58 Attending Provider: Pérez Franco Admit Provider: Pérez Franco Primary Care Provider: Melinda Robles
== END 2022-01-21 14:55 | disposition home or self-care (01) ==
LOC: ED 10:59 → 3W 16:30 → OR 16:30